=== PATIENT | female | born 1990 | race Caucasian/White ===

== ENCOUNTER 2023-05-04 14:16 | Day surgery (SDC) | payer OTHER ==
[2023-05-04] MEDS ORDERED: hydrALAZINE 20 MG/ML VIAL SLOW IVP PRN (15:41)
[2023-05-04 15:42] VITALS: BMI 30.9
[2023-05-04 16:18] LABS: Bilirubin Neg (Negative); Blood, Urine Negative (Negative); Clarity Clear (Clear); Glucose, Urine (Dipstick) Normal (Negative); Ketone, Urine Negative (Negative); Leukocyte 25 (Negative); Nitrite Negative (Negative); Protein, Urine (Dipstick) 15 mg/dl (Neg-Trace); Specific Gravity, Urine 1.015 (1.005-1.030); Urobilinogen Normal mg/dL (Less than 2); pH, Urine 6.5 (5.0-9.0)
[2023-05-04 16:30] LABS: Bacteria/HPF 1+ HPF (None Seen); CAUTI Indications for Culture Pregnancy; Mucous/LPF 1+ LPF (<2+); RBC/HPF None Seen HPF (0-3); Squamous Epithelial 0-3 HPF (0-3)
[2023-05-04 16:32] LABS: Urine Culture Reflex Yes Yes
[2023-05-04] MEDS ORDERED: Acetaminophen 325 MG TAB ONE (16:53)
== END 2023-05-04 18:03 | disposition home or self-care (01) ==
LOC: CSHLD/OP 14:16
PROVIDERS: ATTEND Family Medicine
DX: O99.891 Other specified diseases and conditions complicating pregnancy (principal); R10.9 Unspecified abdominal pain; O24.414 Gestational diabetes mellitus in pregnancy, insulin controlled; O99.513 Diseases of the respiratory system complicating pregnancy, third trimester; J45.20 Mild intermittent asthma, uncomplicated; O99.613 Diseases of the digestive system complicating pregnancy, third trimester; K21.9 Gastro-esophageal reflux disease without esophagitis; Z79.4 Long term (current) use of insulin; Z87.59 Personal history of other complications of pregnancy, childbirth and the puerperium; Z91.040 Latex allergy status; Z3A.34 34 weeks gestation of pregnancy
CPT/HCPCS: 36416; 81001; 87086; 99284

== ENCOUNTER 2023-05-26 13:42 | Day surgery (SDC) | payer OTHER | END 2023-05-26 17:45 | disposition home or self-care (01) | LOC: CSHLD/OP 13:42 | PROVIDERS: ATTEND Family Medicine | DX: O47.03 False labor before 37 completed weeks of gestation, third trimester (principal); Z3A.36 36 weeks gestation of pregnancy; Z91.040 Latex allergy status; Z90.89 Acquired absence of other organs | CPT/HCPCS: 99283 ==

== ENCOUNTER 2023-05-30 05:00 | Inpatient (IN) | payer OTHER ==
[2023-05-30] MEDS ORDERED: Ondansetron PF 4 MG/2 ML Vial IVP PRN (23:08)
[2023-05-30] MEDS ORDERED: Tranexamic Acid 1,000 MG/10 ML VIAL IVP PRN (23:08)
[2023-05-30] MEDS ORDERED: HYDROcodone/Acetaminophen 5/325 mg Tablet PO PRN (23:08)
[2023-05-30] MEDS ORDERED: Carboprost 250 MCG/ML AMP IM PRN (23:08)
[2023-05-30] MEDS ORDERED: Misoprostol 200 MCG TAB PR PRN (23:08)
[2023-05-30] MEDS ORDERED: Ibuprofen 800 MG TAB PO PRN (23:08)
[2023-05-30] MEDS ORDERED: Diphenoxylate HCl/Atropine Tablet PO PRN (23:08)
[2023-05-30] MEDS ORDERED: fentaNYL 50 mcg/mL 1 mL Vial SLOW IVP PRN (23:08)
[2023-05-30] MEDS ORDERED: Methylergonovine 0.2 MG/ML VIAL IM PRN (23:08)
[2023-05-30] MEDS ORDERED: Acetaminophen 500 MG TAB PO PRN (23:08)
[2023-05-30] MEDS ORDERED: Promethazine HCl 25 MG/ML VIAL IM PRN (23:08)
[2023-05-30] MEDS ORDERED: hydrALAZINE 20 MG/ML VIAL SLOW IVP PRN (23:08)
[2023-05-30] MEDS ORDERED: Lidocaine 1% (PF) 30 ML VIAL SC PRN (23:08)
[2023-05-30] MEDS ORDERED: Oxytocin 30 units/NS 500 ML 500 ML IV SCH ×3 (23:15)
[2023-05-31 00:23] VITALS: BMI 31.4
[2023-05-31] MEDS ORDERED: Calcium Carbonate 500 MG ChewTAB PO SCH (00:45)
[2023-05-31 00:48] LABS: Hemoglobin 9.3 g/dL (12.0-15.5); Mean Corpuscular HGB CONC 32.1 g/dL (32.0-36.0); Mean Platelet Volume 11.5 fl (7.4-10.4); Platelet Count 234 10x3/uL (150-450); RBC Distribution Width 14.2 % (11.5-14.5); Red Blood Cell (RBC) Count 3.72 10x6/uL (3.90-5.03); White Blood Cell (WBC) Count 8.7 10x3/uL (3.5-10.5)
[2023-05-31 00:58] LABS: Glucose 83 mg/dL (70-105)
[2023-05-31 01:25] LABS: Hep B Surf Ag - L&D Non-Reactive S/CO (NonReactive)
[2023-05-31 01:26] LABS: Syphilis Antibody Nonreactive (Nonreactive); Syphilis Antibody Index 0.04 S/CO (<1.00 Non-Reactive)
[2023-05-31] MEDS: Lactated Ringer's 1,000 ML IV SCH ×2 (06:07→14:00)
[2023-05-31] MEDS ORDERED: fentaNYL/Ropivacaine Epidural 0 ML ONE (10:36)
[2023-05-31] MEDS ORDERED: Lidocaine 1% (PF) 30 ML VIAL ONE (10:52)
[2023-05-31] MEDS ORDERED: Lanolin Ointment 7 GM TUBE TOP PRN (13:16)
[2023-05-31] MEDS ORDERED: Milk Of Magnesia 30 ML UDCUP PO PRN (13:16)
[2023-05-31] MEDS ORDERED: Promethazine HCl 25 MG/ML VIAL IM PRN (13:16)
[2023-05-31] MEDS ORDERED: hydrALAZINE 20 MG/ML VIAL SLOW IVP PRN (13:16)
[2023-05-31] MEDS ORDERED: diphenhydrAMINE 25 MG CAP PO PRN (13:16)
[2023-05-31] MEDS ORDERED: Bisacodyl 10 MG SUPP PR PRN (13:16)
[2023-05-31] MEDS ORDERED: Ondansetron PF 4 MG/2 ML Vial IVP PRN (13:16)
[2023-05-31] MEDS ORDERED: Boostrix 0.5 ML (Tdap) VIAL (>/=7 yrs of age) IM ONE (13:16)
[2023-05-31] MEDS: Ferrous Sulfate 325 MG TAB PO SCH (13:59)
[2023-05-31] MEDS: Misoprostol 100 MCG TAB VAG SCH (13:59)
[2023-05-31] MEDS: HYDROcodone/Acetaminophen 5/325 mg Tablet PO PRN ×2 (15:36→21:19)
[2023-05-31] MEDS: Docusate 100 MG CAP PO SCH (21:13)
[2023-05-31] MEDS: Ibuprofen 800 MG TAB PO SCH (21:13)
[2023-06-01] MEDS: Ibuprofen 800 MG TAB PO SCH ×2 (05:57→13:17)
[2023-06-01] MEDS: Docusate 100 MG CAP PO SCH (08:00)
[2023-06-01] MEDS: Ferrous Sulfate 325 MG TAB PO SCH (08:00)
[2023-06-01] MEDS: HYDROcodone/Acetaminophen 5/325 mg Tablet PO PRN ×2 (08:10→13:20)
[2023-06-01] MEDS ORDERED: Sertraline 100 MG TAB PO SCH (09:00)
[2023-06-01] MEDS ORDERED: Prenatal Vitamin 1 TAB PO SCH (09:00)
[2023-06-01 10:52] VITALS: BP 123/87; TEMP 98.3
== END 2023-06-01 17:45 | disposition home or self-care (01) | DRG 807 ==
LOC: CSHLD 22:56 → CSHPP 05-31 13:05
PROVIDERS: ADMIT Family Medicine; ATTEND Family Medicine
PROC: 10E0XZZ Delivery of Products of Conception, External Approach (ICD-10-PCS; principal; 2023-05-31)
PROC: 10907ZC Drainage of Amniotic Fluid, Therapeutic from Products of Conception, Via Natural or Artificial Opening (ICD-10-PCS; 2023-05-31)
PROC: 3E0P7VZ Introduction of Hormone into Female Reproductive, Via Natural or Artificial Opening (ICD-10-PCS; 2023-05-31)
DX: O24.425 Gestational diabetes mellitus in childbirth, controlled by oral hypoglycemic drugs (principal); Z37.0 Single live birth; Z3A.38 38 weeks gestation of pregnancy
CPT/HCPCS: 36415; 36416; 82947; 85027; 86780; 86850; 86900; 86901; 87340; J2590; J3010; J7120

== ENCOUNTER 2023-10-26 18:37 | Emergency (ER) | payer OTHER ==
[2023-10-26] MEDS ORDERED: Ketorolac Tromethamine 30 MG (1 mL) VIAL ONE (21:30)
== END 2023-10-26 22:00 | disposition home or self-care (01) ==
LOC: CSHERS 18:37
DX: K08.89 Other specified disorders of teeth and supporting structures (principal); J45.909 Unspecified asthma, uncomplicated; Z55.6 Problems related to health literacy
CPT/HCPCS: 96372; 99282; J1885

== ENCOUNTER → 2024-01-29 | Day surgery (SDC) | payer OTHER ==
[2024-01-28 11:46] VITALS: BMI 30.9
[~2024-01-29] MED LIST: PROPOFOL 40 ML ONE
== END ==
LOC: CSHSDC 08:07
PROVIDERS: ATTEND Internal Medicine Gastroenterology
PROC: 0DB68ZX Excision of Stomach, Via Natural or Artificial Opening Endoscopic, Diagnostic (ICD-10-PCS; principal; 2024-01-29)
PROC: 0DB38ZX Excision of Lower Esophagus, Via Natural or Artificial Opening Endoscopic, Diagnostic (ICD-10-PCS; principal; 2024-01-29)
PROC: 0DB48ZX Excision of Esophagogastric Junction, Via Natural or Artificial Opening Endoscopic, Diagnostic (ICD-10-PCS; principal; 2024-01-29)
DX: K21.00 Gastro-esophageal reflux disease with esophagitis, without bleeding (principal); K22.10 Ulcer of esophagus without bleeding; J45.909 Unspecified asthma, uncomplicated; Z88.8 Allergy status to other drugs, medicaments and biological substances; Z79.899 Other long term (current) drug therapy; Z91.040 Latex allergy status; Z79.51 Long term (current) use of inhaled steroids
CPT/HCPCS: 88305; J2704